=== PATIENT | male | born 1950 | race African-American/Black ===

== ENCOUNTER 2018-03-03 18:53 | Inpatient (IN) | payer MEDICARE, MEDICAID ==
[~2018-03-03] VITALS: Ht 188 cm; Wt 90.7 kg
[~2018-03-03 18:53] MED LIST: AMLODIPINE BESYL5 MG ORAL; LANTUS SOL100 UNIT/1; ZANTAC150 MG ORAL
[2018-03-03] MEDS ORDERED: Sodium Chloride 500ML 500 ML IV ONE (19:44)
[2018-03-03] MEDS ORDERED: Morphine Sulfate 4mg/ml Inj IVP ONE (19:45)
--- NOTE | 2018-03-03 19:49 | Emergency Room Report ---
History of Present Illness General Chief Complaint: Abdominal Pain Source: Patient Present Illness HPI Patient had a laparoscopic cholecystectomy in [place] 2 weeks ago presents today with increased abdominal pain for the past several days Mid abdominal Pain is 10 out of 10 Patient reports vomiting denies any diarrhea Denies any chest pain or shortness of breath Denies any flank pain Allergies: Coded Allergies: ASPIRIN (Verified Allergy, Unknown, 09/13/16) PENICILLINS (Verified Allergy, Unknown, 09/13/16) Patient History Past Medical History: see triage record Pertinent Family History: none Reviewed Nursing Documentation: PMH: Agreed; PSxH: Agreed Nursing Documentation-PMH Past Medical History: No History, Except For Hx Hypertension: Yes Hx Asthma: Yes Hx Diabetes: Yes Hx Cancer: No Hx Gastrointestinal Problems: No Hx Neurological Problems: Yes Hx Peripheral Neuropathy: Yes Review of Systems All Other Systems: negative except mentioned in HPI Physical Exam Vital Signs Date Time Temp Pulse Resp B/P (MAP) Pulse Ox O2 Delivery O2 Flow Rate FiO2 03/03/18 19:11 97.0 90 14 141/91 99 Room Air 97.0 Sp02 EP Interpretation: reviewed, normal General Appearance: moderate distress - In acute pain Head: normocephalic, atraumatic Eyes: bilateral eye PERRL, bilateral eye EOMI ENT: normal pharynx, no angioedema Neck: full range of motion, supple Respiratory: lungs clear Cardiovascular #1: regular rate, rhythm Gastrointestinal: other - Mid abdominal palpable mass possibly, strangulate hernia Musculoskeletal: normal inspection Neurologic: alert, oriented x3 Skin: normal color, no rash Lymphatic: no adenopathy Medical Decision Making Diagnostic Impression: Primary Impression: Abdominal pain ER Course With the history exam and presentation, multiple differentials considered, including but not limited to appendicitis, gastritis, cholecystitis, diverticulitis Given the patient's recent surgery bowel obstruction and other hernia strangulation/incarceration considered Patient's CT result is negative Repeat abdominal exam is soft It appears the hernia likely reduced spontaneously Given the patient's initial presentation he is still placed into admission for observation overnight Unfortunately he did refuse Central line placement for IV access after peripheral IV access was not able to be obtained Patient is admitted to a medical surgical floor, is not in acute distress at this time, and will be reevaluated for more definitive line placement Labs Test 03/03/18 20:40 White Blood Count 7.3 K/UL (4.8-10.8) Red Blood Count 3.58 M/UL (4.70-6.10) Hemoglobin 10.4 G/DL (14.2-18.0) Hematocrit 32.5 % (42.0-52.0) Mean Corpuscular Volume 91 FL (80-99) Mean Corpuscular Hemoglobin 29.0 PG (27.0-31.0) Mean Corpuscular Hemoglobin Concent 32.0 G/DL (32.0-36.0) Red Cell Distribution Width 14.1 % (11.6-14.8) Platelet Count 205 K/UL (150-450) Mean Platelet Volume 5.0 FL (6.5-10.1) Neutrophils (%) (Auto) 75.5 % (45.0-75.0) Lymphocytes (%) (Auto) 15.4 % (20.0-45.0) Monocytes (%) (Auto) 5.3 % (1.0-10.0) Eosinophils (%) (Auto) 2.6 % (0.0-3.0) Basophils (%) (Auto) 1.2 % (0.0-2.0) Prothrombin Time 10.0 SEC (9.30-11.50) Prothromb Time International Ratio 1.0 (0.9-1.1) Activated Partial Thromboplast Time 27 SEC (23-33) Sodium Level 142 MMOL/L (136-145) Potassium Level 3.9 MMOL/L (3.5-5.1) Chloride Level 107 MMOL/L (98-107) Carbon Dioxide Level 25 MMOL/L (21-32) Anion Gap 11 mmol/L (5-15) Blood Urea Nitrogen 21 mg/dL (7-18) Creatinine 2.5 MG/DL (0.55-1.30) Estimat Glomerular Filtration Rate 31.5 mL/min (>60) Glucose Level 174 MG/DL (74-106) Calcium Level 9.1 MG/DL (8.5-10.1) Total Bilirubin 0.2 MG/DL (0.2-1.0) Aspartate Amino Transf (AST/SGOT) 17 U/L (15-37) Alanine Aminotransferase (ALT/SGPT) 27 U/L (12-78) Alkaline Phosphatase 119 U/L (46-116) Total Creatine Kinase 288 U/L (26-308) Creatine Kinase MB 1.3 NG/ML (0.0-3.6) Creatine Kinase MB Relative Index 0.4 Troponin I 0.000 ng/mL (0.000-0.056) Pro-B-Type Natriuretic Peptide 172 pg/mL (0-125) Total Protein 7.7 G/DL (6.4-8.2) Albumin 3.3 G/DL (3.4-5.0) Globulin 4.4 g/dL Albumin/Globulin Ratio 0.8 (1.0-2.7) Lipase 157 U/L (73-393) Rhythm Strip Diag. Results EP Interpretation: yes Rate: 67 Rhythm: NSR, no PVC's, no ectopy CT/MRI/US Diagnostic Results CT/MRI/US Diagnostic Results : Impression CT abdomen pelvis no acute disease Last Vital Signs Date Time Temp Pulse Resp B/P (MAP) Pulse Ox O2 Delivery O2 Flow Rate FiO2 03/03/18 19:11 97.0 90 14 141/91 99 Room Air 97.0 Status: improved Disposition: ADMITTED INPATIENT Condition: Serious Chandrakant Sumner DO March 03, 2018 19:49
[2018-03-03] MEDS ORDERED: Morphine Sulfate 4mg/ml Inj IM ONE (20:00)
[2018-03-03 20:55] VITALS: BP 168/75
[2018-03-03 21:12] LABS: BASOPHILS % (AUTO) 1.2 % (0.0-2.0); EOSINOPHILS % (AUTO) 2.6 % (0.0-3.0); HEMATOCRIT 32.5 % (42.0-52.0); HEMOGLOBIN 10.4 G/DL (14.2-18.0); LYMPHOCYTES % (AUTO) 15.4 % (20.0-45.0); MEAN CORPUSCULAR VOLUME 91 FL (80-99); MONOCYTES % (AUTO) 5.3 % (1.0-10.0); NEUTROPHILS % (AUTO) 75.5 % (45.0-75.0); PLATELET COUNT 205 K/UL (150-450); RED BLOOD COUNT 3.58 M/UL (4.70-6.10); RED CELL DISTRIBUTION WIDTH 14.1 % (11.6-14.8); WHITE BLOOD COUNT 7.3 K/UL (4.8-10.8)
[2018-03-03] MEDS ORDERED: NORCO 10-325 T1 EACH ORAL (21:17)
[2018-03-03 21:18] LABS: ANION GAP 11 mmol/L (5-15); BLOOD UREA NITROGEN 21 mg/dL (7-18); CALCIUM 9.1 MG/DL (8.5-10.1); CARBON DIOXIDE 25 MMOL/L (21-32); CHLORIDE 107 MMOL/L (98-107); CREATININE 2.5 MG/DL (0.55-1.30); POTASSIUM 3.9 MMOL/L (3.5-5.1); SODIUM 142 MMOL/L (136-145)
[2018-03-03 21:33] LABS: ALANINE AMINOTRANSFERASE 27 U/L (12-78); ALBUMIN 3.3 G/DL (3.4-5.0); ALBUMIN/GLOBULIN RATIO 0.8 (1.0-2.7); ALKALINE PHOSPHATASE 119 U/L (46-116); ASPARTATE AMINO TRANSFERASE 17 U/L (15-37); BILIRUBIN,TOTAL 0.2 MG/DL (0.2-1.0); CKMB 1.3 NG/ML (0.0-3.6); CREATINE KINASE 288 U/L (26-308)
[2018-03-03 22:11] VITALS: BP 150/90
--- NOTE | 2018-03-03 22:15 | Consultation ---
DATE OF CONSULTATION: 03/03/2018 CONSULTING PHYSICIAN: Zhang Polk M.D. REQUESTING PHYSICIAN: in the emergency room. REASON FOR CONSULTATION: Abdominal pain. HISTORY OF PRESENT ILLNESS: This is a 68-year-old male, who presented to the emergency room complaining of abdominal pain. Apparently, he has had it for two weeks. He stated that two weeks ago, he has undergone a laparoscopy cholecystectomy at [place] and after that, he has been having pain in the lower abdomen. He claimed that the pain is off and on, has been associated with nausea and vomiting. It is not very clear, but he claims that he had watery diarrhea. He stated that he has been hospitalized in [facility] for two to three days for the same pain and diarrhea. He denies fever, cough, dysuria, or frequency. PAST MEDICAL HISTORY: He claims to be allergic to penicillin and aspirin. He denies cardiac and renal diseases. He has a history of asthma, diabetes, and hypertension. PAST SURGICAL HISTORY: Include laparoscopic cholecystectomy, left carotid endarterectomy, and left knee arthroscopy. MEDICATIONS: Currently, he is on multiple medications. Please see the medicine reconciliation form. SOCIAL HISTORY: The patient is a 67-year-old male, who is a . Father of five children. He is unemployed and denies drinking, but he claims that he smokes a cigar when he plays . REVIEW OF SYSTEMS: Noncontributory. PHYSICAL EXAMINATION: GENERAL: The patient appeared to be a well-developed, well-nourished 68-year-old male, in no acute distress. HEENT: Head is normocephalic and atraumatic. Eyes, pupils are equal, round, and reactive to light. Mouth is clear, but poor denture. NECK: He has a scar from the incision on the left side. There is no palpable thyromegaly or adenopathy. CHEST: Clear to auscultation and percussion. HEART: There is no gallop or murmur. S1 and S2 are within normal limits. ABDOMEN: Soft and flat. He has a scar of the laparoscopic cholecystectomy, which included one small incision above the umbilicus. Scar of the incision in the epigastrium and two small ones on the right side of the abdomen. The abdomen is soft and flat with apparently tenderness at the lower abdomen. There is no palpable organomegaly. Bowel sounds are audible. EXTREMITIES: Within normal limits. LABORATORY AND DIAGNOSTIC DATA: CBC and chemistry is normal. CAT scan of the abdomen is pending. ASSESSMENT: Lower abdominal pain, probably colitis. RECOMMENDATIONS: At this time, the patient requires pain control and GI consultation. There is no surgery required. Zhang Polk M.D. DR: GABBIE JOB#: [id number] CC:
[2018-03-03] MEDS ORDERED: GABAPENTIN600 MG ORAL (23:14)
[2018-03-03] MEDS ORDERED: DOCUSATE SODIU100 M2 ORAL (23:14)
[2018-03-03] MEDS ORDERED: RESTORIL30 MG ORAL (23:14)
[2018-03-03] MEDS ORDERED: BENAZEPRIL HCL10 MG ORAL (23:14)
[2018-03-03] MEDS ORDERED: Morphine Sulfate 4mg/ml Inj IVP PRN (23:15)
[2018-03-04] VITALS: BP 152/82
[2018-03-04] MEDS: HYDROcodone/Acetamin 10/325 tab ORAL PRN ×2 (00:56→08:24)
[2018-03-04] MEDS: D5NS 1,000 ML IV SCH ×3 (01:30→20:16)
[2018-03-04] MEDS ORDERED: Piperacillin/Tazobactam 3.375 GM in D5W 110 ML IVPB SCH (06:00)
[2018-03-04 08:02] VITALS: BP 143/66
[2018-03-04] MEDS: Docusate 100mg cap ORAL SCH ×2 (08:23→17:06)
[2018-03-04] MEDS: Benazepril 10mg tab ORAL SCH (08:25)
[2018-03-04] MEDS: Breo Ellipta 100/25mcg - 14 dose INH SCH (09:51)
[2018-03-04] MEDS ORDERED: Cefepime 1gm in D5W 55ml IVPB SCH (11:00)
[2018-03-04 11:45] VITALS: BP 138/68
[2018-03-04] MEDS ORDERED: Lidocaine 1% Plain 30 ml INJ PRN (12:42)
[2018-03-04] MEDS ORDERED: Heparin 2000 units/Ns 1000ml INJ PRN (12:42)
[2018-03-04] MEDS: metroNIDAZOLE 500mg Premix IVPB SCH ×2 (13:18→20:17)
--- NOTE | 2018-03-04 14:02 | General Surgery Progress Note ---
General Surgery-Progress Note Objective Last 24 Hour Vital Signs Date Time Temp Pulse Resp B/P (MAP) Pulse Ox O2 Delivery O2 Flow Rate FiO2 03/04/18 11:45 98.0 86 20 138/68 97 98.0 03/04/18 09:53 85 18 100 Room Air 21 03/04/18 09:51 85 18 100 Room Air 21 03/04/18 09:23 98.2 03/04/18 08:25 143/66 03/04/18 08:25 84 143/66 03/04/18 08:24 98.2 03/04/18 08:02 98.2 84 20 143/66 97 98.2 03/04/18 00:00 98.1 92 22 152/82 98 Room Air 98.1 03/03/18 22:20 98.0 102 13 150/90 100 Room Air 98.0 03/03/18 22:11 102 13 150/90 100 Room Air 03/03/18 20:55 98.0 89 17 168/75 100 Room Air 98.0 03/03/18 20:29 98.0 03/03/18 19:59 97.0 03/03/18 19:11 97.0 90 14 141/91 99 Room Air 97.0 I&O Intake and Output 03/03/18 03/04/18 19:00 07:00 Output Total 0 ml Balance 0 ml Output Urine Total 0 ml # Voids 2 Respiratory: clear Abdomen: soft, flat Extremities: no edema, no tenderness Laboratory Tests Test 03/03/18 20:40 White Blood Count 7.3 K/UL (4.8-10.8) Red Blood Count 3.58 M/UL (4.70-6.10) L Hemoglobin 10.4 G/DL (14.2-18.0) L Hematocrit 32.5 % (42.0-52.0) L Mean Corpuscular Volume 91 FL (80-99) Mean Corpuscular Hemoglobin 29.0 PG (27.0-31.0) Mean Corpuscular Hemoglobin Concent 32.0 G/DL (32.0-36.0) Red Cell Distribution Width 14.1 % (11.6-14.8) Platelet Count 205 K/UL (150-450) Mean Platelet Volume 5.0 FL (6.5-10.1) L Neutrophils (%) (Auto) 75.5 % (45.0-75.0) H Lymphocytes (%) (Auto) 15.4 % (20.0-45.0) L Monocytes (%) (Auto) 5.3 % (1.0-10.0) Eosinophils (%) (Auto) 2.6 % (0.0-3.0) Basophils (%) (Auto) 1.2 % (0.0-2.0) Prothrombin Time 10.0 SEC (9.30-11.50) Prothromb Time International Ratio 1.0 (0.9-1.1) Activated Partial Thromboplast Time 27 SEC (23-33) Sodium Level 142 MMOL/L (136-145) Potassium Level 3.9 MMOL/L (3.5-5.1) Chloride Level 107 MMOL/L (98-107) Carbon Dioxide Level 25 MMOL/L (21-32) Anion Gap 11 mmol/L (5-15) Blood Urea Nitrogen 21 mg/dL (7-18) H Creatinine 2.5 MG/DL (0.55-1.30) H Estimat Glomerular Filtration Rate 31.5 mL/min (>60) Glucose Level 174 MG/DL (74-106) H Calcium Level 9.1 MG/DL (8.5-10.1) Total Bilirubin 0.2 MG/DL (0.2-1.0) Aspartate Amino Transf (AST/SGOT) 17 U/L (15-37) Alanine Aminotransferase (ALT/SGPT) 27 U/L (12-78) Alkaline Phosphatase 119 U/L (46-116) H Total Creatine Kinase 288 U/L (26-308) Creatine Kinase MB 1.3 NG/ML (0.0-3.6) Creatine Kinase MB Relative Index 0.4 Troponin I 0.000 ng/mL (0.000-0.056) Pro-B-Type Natriuretic Peptide 172 pg/mL (0-125) H Total Protein 7.7 G/DL (6.4-8.2) Albumin 3.3 G/DL (3.4-5.0) L Globulin 4.4 g/dL Albumin/Globulin Ratio 0.8 (1.0-2.7) L Lipase 157 U/L (73-393) Assessment Additional Comments abdominal pain Plan Additional Comments requires G-I consultation CHRIS RAMOS March 04, 2018 14:02
[2018-03-04] MEDS ORDERED: Miralax 17gm pkt ORAL PRN (14:43)
[2018-03-04 16:01] VITALS: BP 135/65
--- NOTE | 2018-03-04 18:30 | History and Physical Report ---
DATE OF ADMISSION: 03/04/2018 CHIEF COMPLAINT: Abdominal pain. HISTORY OF PRESENT ILLNESS: The patient is a 67-year-old male. He has a history of hypertensive heart disease, diabetes, and asthma, who presented with complaints of abdominal pain. According to the patient, he was well. He said several weeks ago, he had a laparoscopic cholecystectomy done in [place]. Ever since, he has had intermittent episodes of nausea and vomiting. He states at times he is able to tolerate p.o. and at other times, he vomits. His last bowel movement was several days ago. Because of his persistent nausea and vomiting, he presented to the emergency room. On evaluation there, the patient's white count was normal. Laboratory was significant for creatinine of 2.5. CT scan of the abdomen was done, but results are still currently pending. In light of the patient's persistent nausea, vomiting, and renal failure, he is now admitted for further evaluation and care. PAST MEDICAL HISTORY: As above. PAST SURGICAL HISTORY: Left carotid endarterectomy, left knee surgery, and a recent laparoscopic cholecystectomy. CURRENT MEDICATIONS: Reconciled and reviewed. ALLERGIES: Include aspirin and penicillin. FAMILY HISTORY: Noncontributory. SOCIAL HISTORY: Negative for tobacco, ethanol, or drugs. REVIEW OF SYSTEMS: GENERAL: No fevers or chills. HEENT: No headaches or visual changes. CARDIOPULMONARY: No chest pain or shortness of breath. GASTROINTESTINAL: Positive for nausea and vomiting. No diarrhea. Positive for constipation. GENITOURINARY: No urgency or frequency. MUSCULOSKELETAL: No joint pain or swelling. NEUROLOGIC: No seizures. PHYSICAL EXAMINATION: VITAL SIGNS: Temperature 98 degrees, blood pressure 150/90, pulse is 102, and respirations 20. GENERAL: The patient is a well-developed male, in no apparent distress. HEART: Regular rate and rhythm. LUNGS: Clear. ABDOMEN: Soft, mildly tender, but nondistended. There is no rebound or guarding. There are several old scars from his laparoscopic cholecystectomy. EXTREMITIES: Without clubbing, cyanosis, or edema. LABORATORY DATA: White count 7, hemoglobin 10, hematocrit 32, and platelets are 205,000. Coags are normal. Creatinine was 2.5. Potassium was 3.9. Troponin was negative. CK was 288. ASSESSMENT: This is a pleasant male, status post laparoscopic cholecystectomy, who presents with complaints of intermittent episodes of nausea and vomiting. 1. Nausea and vomiting. rule out obstruction. 2. Dehydration. 3. Acute renal failure. PLAN: The patient refused a central line. Multiple attempts to place a peripheral line have been unsuccessful. We will try to place a line in the foot. Order a PICC line. We will hydrate. We will follow up CT scan. GI consultation will also be obtained. Surgery input is greatly appreciated. Empiric antibiotics. Chris Jones M.D. DR: TAI JOB#: [id number] CC:
[2018-03-04 19:21] VITALS: BP 138/93
[2018-03-05 00:17] VITALS: BP 123/67
[2018-03-05 04:04] VITALS: BP 138/72
[2018-03-05] MEDS: metroNIDAZOLE 500mg Premix IVPB SCH (05:31)
[2018-03-05] MEDS: D5NS 1,000 ML IV SCH (05:39)
[2018-03-05 08:00] VITALS: BP 165/92
--- NOTE | 2018-03-05 08:06 | General Progress Note ---
Assessment/Plan Problem List: (1) Acute renal failure (ARF) ICD Codes: N17.9 - Acute kidney failure, unspecified SNOMED: 68482706 (2) Abdominal pain ICD Codes: R10.9 - Unspecified abdominal pain SNOMED: 54764089 Status: stable Assessment/Plan follow up ct abx bowel regime Subjective ROS Limited/Unobtainable: No Constitutional: Reports: malaise, weakness HEENT: Reports: no symptoms Cardiovascular: Reports: no symptoms Respiratory: Reports: no symptoms Gastrointestinal/Abdominal: Reports: abdominal pain Genitourinary: Reports: no symptoms Neurologic/Psychiatric: Reports: no symptoms Endocrine: Reports: no symptoms Hematologic/Lymphatic: Reports: no symptoms Allergies: Coded Allergies: ASPIRIN (Verified Allergy, Unknown, 09/13/16) PENICILLINS (Verified Allergy, Unknown, 09/13/16) All Systems: reviewed and negative except above Subjective refusing to eat because of abd pain. Per surgery ct negative. no results in computer yet. no fever or chills. no iv access.pt refused central line Objective Last 24 Hour Vital Signs Date Time Temp Pulse Resp B/P (MAP) Pulse Ox O2 Delivery O2 Flow Rate FiO2 03/05/18 04:04 98.2 80 20 138/72 99 Room Air 98.2 03/05/18 00:17 98.6 71 20 123/67 98 Room Air 98.6 03/04/18 19:21 98.1 76 20 138/93 96 Room Air 98.1 03/04/18 16:01 98.2 80 20 135/65 98 98.2 03/04/18 11:45 98.0 86 20 138/68 97 98.0 03/04/18 09:53 85 18 100 Room Air 21 03/04/18 09:51 85 18 100 Room Air 21 03/04/18 09:23 98.2 03/04/18 08:25 143/66 03/04/18 08:25 84 143/66 03/04/18 08:24 98.2 Intake and Output 03/04/18 03/05/18 19:00 07:00 Intake Total 120 ml 300 ml Output Total 600 ml Balance -480 ml 300 ml Intake Oral 120 ml 300 ml Output Urine Total 600 ml # Voids 2 3 # Bowel Movements 2 Height (Feet): 6 Height (Inches): 2.00 Weight (Pounds): 200 General Appearance: WD/WN, no apparent distress Cardiovascular: regular rhythm Respiratory/Chest: lungs clear Abdomen: normal bowel sounds, non tender, soft, no organomegaly, no mass Edema: no edema noted Arm (L), no edema noted Arm (R), no edema noted Leg (L), no edema noted Leg (R), no edema noted Pedal (L), no edema noted Pedal (R), no edema noted Generalized JEANNE WAY March 05, 2018 08:05
[2018-03-05] MEDS ORDERED: Magnesium Citrate Liq Btl ORAL SCH (08:45)
[2018-03-05] MEDS: Docusate 100mg cap ORAL SCH (08:48)
[2018-03-05] MEDS: Benazepril 10mg tab ORAL SCH (08:48)
[2018-03-05] MEDS: HYDROcodone/Acetamin 10/325 tab ORAL PRN (08:52)
[2018-03-05 09:52] LABS: ALANINE AMINOTRANSFERASE 66 U/L (12-78); ALBUMIN 3.3 G/DL (3.4-5.0); ALBUMIN/GLOBULIN RATIO 0.7 (1.0-2.7); ALKALINE PHOSPHATASE 149 U/L (46-116); ANION GAP 8 mmol/L (5-15); ASPARTATE AMINO TRANSFERASE 59 U/L (15-37); BILIRUBIN,TOTAL 0.2 MG/DL (0.2-1.0); BLOOD UREA NITROGEN 18 mg/dL (7-18); CALCIUM 9.5 MG/DL (8.5-10.1); CARBON DIOXIDE 28 MMOL/L (21-32); CHLORIDE 106 MMOL/L (98-107); CREATININE 2.2 MG/DL (0.55-1.30); POTASSIUM 4.5 MMOL/L (3.5-5.1); SODIUM 142 MMOL/L (136-145)
[2018-03-05] MEDS: Breo Ellipta 100/25mcg - 14 dose INH SCH (09:59)
--- NOTE | 2018-03-05 11:51 | Cardiology Report ---
APPROVED REPORT EKG Measurement Heart [id number] Normal sinus rhythm Normal ECG
[2018-03-05 11:55] VITALS: BP 149/82
--- NOTE | 2018-03-05 15:48 | General Surgery Progress Note ---
General Surgery-Progress Note Subjective Symptoms: BM Additional Comments continues complaining of nonspecific abdominal pain Objective Last 24 Hour Vital Signs Date Time Temp Pulse Resp B/P (MAP) Pulse Ox O2 Delivery O2 Flow Rate FiO2 03/05/18 11:55 96.8 73 18 149/82 99 Room Air 96.8 03/05/18 10:01 104 18 100 Room Air 21 03/05/18 09:59 104 24 100 Room Air 21 03/05/18 09:51 98.1 03/05/18 08:52 98.1 03/05/18 08:49 104 165/92 03/05/18 08:48 165/92 03/05/18 08:00 98.1 104 20 165/92 98 Room Air 98.1 03/05/18 04:04 98.2 80 20 138/72 99 Room Air 98.2 03/05/18 00:17 98.6 71 20 123/67 98 Room Air 98.6 03/04/18 19:21 98.1 76 20 138/93 96 Room Air 98.1 03/04/18 16:01 98.2 80 20 135/65 98 98.2 I&O Intake and Output 03/04/18 03/05/18 19:00 07:00 Intake Total 120 ml 300 ml Output Total 600 ml Balance -480 ml 300 ml Intake Oral 120 ml 300 ml Output Urine Total 600 ml # Voids 2 3 # Bowel Movements 2 Respiratory: clear Abdomen: soft, flat, tenderness, present bowel sounds Extremities: no tenderness Laboratory Tests Test 03/05/18 09:08 Sodium Level 142 MMOL/L (136-145) Potassium Level 4.5 MMOL/L (3.5-5.1) Chloride Level 106 MMOL/L (98-107) Carbon Dioxide Level 28 MMOL/L (21-32) Anion Gap 8 mmol/L (5-15) Blood Urea Nitrogen 18 mg/dL (7-18) Creatinine 2.2 MG/DL (0.55-1.30) H Estimat Glomerular Filtration Rate 36.5 mL/min (>60) Glucose Level 181 MG/DL (74-106) H Calcium Level 9.5 MG/DL (8.5-10.1) Total Bilirubin 0.2 MG/DL (0.2-1.0) Aspartate Amino Transf (AST/SGOT) 59 U/L (15-37) H Alanine Aminotransferase (ALT/SGPT) 66 U/L (12-78) Alkaline Phosphatase 149 U/L (46-116) H Total Protein 8.0 G/DL (6.4-8.2) Albumin 3.3 G/DL (3.4-5.0) L Globulin 4.7 g/dL Albumin/Globulin Ratio 0.7 (1.0-2.7) L Assessment Additional Comments abdominal pain etiology unknown Plan Additional Comments requires G-I consult CHRIS RAMOS March 05, 2018 15:48
[2018-03-06] MEDS ORDERED: GABAPENTIN600 MG ORAL (10:15)
--- NOTE | 2018-03-06 10:37 | Diagnostic Imaging Report ---
Please disregard this report
[2018-03-06] MEDS ORDERED: DICYCLOMIN10 MG/5 M1 PO (15:02)
[2018-03-06] MEDS ORDERED: Dyna-Hex 2% Top Sol 2oz TOPIC SCH (20:00)
--- NOTE | 2018-03-09 11:57 | Diagnostic Imaging Report ---
EXAM: CT Abdomen and Pelvis With Intravenous Contrast CLINICAL HISTORY: PAIN TECHNIQUE: Axial computed tomography images of the abdomen and pelvis with intravenous contrast. CTDI is 0.15, 15.91, 15.91 mGy and DLP is 1561 mGy- cm. One or more of the following dose reduction techniques were used: automated exposure control, adjustment of the mA and/or kV according to patient size, use of iterative reconstruction technique. COMPARISON: No relevant prior studies available. FINDINGS: Lung bases: Dependent atelectasis with trace pleural effusion. ABDOMEN: Liver: Question liver cirrhosis. Gallbladder and bile ducts: Gallbladder is surgically absent. Pancreas: Unremarkable. Spleen: Unremarkable. Adrenals: Unremarkable. Kidneys and ureters: Cysts within the left kidney. Otherwise, kidneys and ureters are unremarkable. Stomach and bowel: Noninflamed colonic diverticulosis. PELVIS: Appendix: Appendix is unremarkable. Bladder: Unremarkable. Reproductive: Prostate gland is markedly enlarged. ABDOMEN and PELVIS: Intraperitoneal space: Unremarkable. Bones/joints: No acute osseous abnormality. No dislocation. Soft tissues: Unremarkable. Vasculature: Unremarkable. No abdominal aortic aneurysm. Lymph nodes: Unremarkable. IMPRESSION: No acute findings.
--- NOTE | 2018-03-11 08:13 | Discharge Summary ---
Discharge Summary Discharge Summary Discharge Summary DATE OF ADMISSION: 03/03/2018 DATE OF DISCHARGE: 03/05/2018 patient signed AGAINST MEDICAL ADVICE REASON FOR ADMISSION: 67 years old male with past medical history of hypertension, asthma, diabetes, undergone laparoscopic cholecystectomy in [place] 2 weeks ago. He presented to emergency department with increased abdominal pain for the past several days. He reported midabdominal pain , 10 out of 10 on a scale 1-10, nonradiating. He reported vomiting but no diarrhea. He denied hematemesis and melena. He denied chest pain, ,shortness of breath. He denied flank pain, no fever no chills. CT of the abdomen and pelvis revealed no acute findings. No fever. No leukocytosis. Hemoglobin 10.4 hematocrit 32.5 BUN 25 and creatinine 2.5. Stable electrolytes, liver enzymes and lipase. Troponin negative. EKG revealed normal sinus rhythm, nol acute ischemic changes. On physical examination per ED provider, patient appeared to have hernia , which reduced spontaneously. Patient admitted with diagnosis nausea and vomiting,rule out obstruction,; abdominal pain, dehydration, acute renal failure. CONSULTANTS: surgery Dr. Burnett [facility] COURSE: Patient admitted to medical surgical floor. Patient declined central line. Multiply attempts to place a peripheral line were unsuccessful. PICC line was ordered. Patient was started on the IV hydration. GI and surgery consults were requested. Patient started on empiric antibiotic. Renal parameters and electrolytes were closely monitored, nephrotoxins were avoided. Pain management was addressed. Blood pressure was managed with calcium channel blockade and DARIO inhibitor and remained stable. GI prophylaxis provided. Bowel regimen instituted. Patient slowly started on liquid diet to advance as tolerated. Surgeon seen and evaluated the patient and recommended pain control and GI consultation. Abdominal exam was unremarkable, with normoactive bowel sounds , no signs of acute abdomen. After physical examination and review of CT scan, surgeon concluded that there was no need for surgical intervention at this time. On March 05, the patient became verbally abusive , using profanity words and screaming. Patient declined bowel regimen as prescribed. Patient expressed desire to leave. He declined to sign AMA form. FINAL DIAGNOSES: Abdominal pain of unknown etiology Nausea and vomiting, resolved Dehydration Acute renal failure I have been assigned to dictate discharge summary for this account. I was not involved in the patient's management. Jailene Wall NP March 11, 2018 08:13
--- NOTE | 2018-03-12 11:11 | Diagnostic Imaging Report ---
EXAM: XR Chest, 1 View CLINICAL HISTORY: CP TECHNIQUE: Frontal view of the chest, "port erect" labeled in left upper hand of the image. COMPARISON: No relevant prior studies available. FINDINGS: Lungs: Unremarkable. No consolidation. Pleural space: Unremarkable. No pneumothorax. Heart: Unremarkable. No cardiomegaly. Mediastinum: Unremarkable. Bones/joints: Unremarkable. IMPRESSION: Normal chest x-ray. Noted is images dated 03/03/18
== END 2018-03-05 16:50 | disposition left against medical advice (07) | DRG 684 ==
LOC: EMR 19:10 → 4W 21:29 → EDBEDREQ 21:40
DX: N17.9 Acute kidney failure, unspecified (principal); R10.30 Lower abdominal pain, unspecified; I11.9 Hypertensive heart disease without heart failure; J45.909 Unspecified asthma, uncomplicated; E11.9 Type 2 diabetes mellitus without complications; E86.0 Dehydration; F17.210 Nicotine dependence, cigarettes, uncomplicated; Z88.0 Allergy status to penicillin; Z98.890 Other specified postprocedural states; Z53.21 Procedure and treatment not carried out due to patient leaving prior to being seen by health care provider
CPT/HCPCS: 36415; 71045; 74176; 80053; 82550; 82553; 82962; 83690; 83880; 84484; 85025; 85610; 85730; 93005; 94640; 99285

== ENCOUNTER 2018-03-06 10:29 | Emergency (ER) | payer MEDICARE, MEDICAID ==
[~2018-03-06] VITALS: Ht 188 cm; Wt 83.9 kg
[2018-03-06 10:29] VITALS: BP 166/75
[~2018-03-06 10:29] MED LIST changes: +BENAZEPRIL HCL10 MG ORAL; +DOCUSATE SODIU100 M2 ORAL; +GABAPENTIN600 MG ORAL; +NORCO 10-325 T1 EACH ORAL; +RESTORIL30 MG ORAL
[2018-03-06] MEDS ORDERED: Isovue-300 100ml vial INJ PRN (10:30)
[2018-03-06] MEDS ORDERED: Morphine Sulfate 4mg/ml Inj IVP ONE (10:30)
--- NOTE | 2018-03-06 10:33 | Emergency Room Report ---
History of Present Illness General Chief Complaint: Abdominal Pain Source: Patient, EMS Present Illness HPI 67-year-old male with a history of recent laparoscopic abdominal surgery In [place] about 2 weeks ago for what he thinks was pancreatic cancer Presents with abdominal pain this been going on since prior to the surgery He reports it's sharp, epigastric area, worse with eating, and also associated with nausea and vomiting intermittently He was in her primary care doctor's office when they told him to come to the ER for abdominal pain evaluation He is not on an percent certain what was done during the recent surgery Allergies: Coded Allergies: ASPIRIN (Verified Allergy, Unknown, 09/13/16) PENICILLINS (Verified Allergy, Unknown, 09/13/16) Patient History Past Medical History: see triage record Reviewed Nursing Documentation: PMH: Agreed; PSxH: Agreed Nursing Documentation-PMH Past Medical History: No History, Except For Hx Cardiac Problems: Yes Hx Hypertension: No - RA Hx Asthma: Yes Hx Diabetes: Yes Hx Cancer: No Hx Gastrointestinal Problems: Yes - [place] Hx Neurological Problems: Yes Hx Peripheral Neuropathy: Yes Review of Systems All Other Systems: negative except mentioned in HPI Physical Exam Vital Signs Date Time Temp Pulse Resp B/P (MAP) Pulse Ox O2 Delivery O2 Flow Rate FiO2 03/06/18 10:10 97.9 102 20 134/80 99 Room Air 97.9 Sp02 EP Interpretation: reviewed, normal General Appearance: no apparent distress, alert, non-toxic Head: normocephalic Eyes: bilateral eye normal inspection, bilateral eye PERRL, bilateral eye EOMI ENT: normal ENT inspection, hearing grossly normal, normal pharynx, no angioedema, normal voice, moist mucus membranes Neck: normal inspection, full range of motion, supple, supple/symm/no masses Respiratory: chest non-tender, lungs clear, normal breath sounds, chest symmetrical, palpation of chest normal Cardiovascular #1: normal peripheral pulses, regular rate, rhythm Cardiovascular #2: 2+ radial (R), 2+ radial (L) Gastrointestinal: non tender, soft, no mass, no guarding, no rebound, other - Multiple scars over laparascopic incision sites c/d/i and healing Rectal: deferred Genitourinary: normal inspection, no CVA tenderness Musculoskeletal: back normal, gait/station normal, normal range of motion, non- tender, no calf tenderness Neurologic: alert, responsive, pile header III-XII nml as tested, motor strength/tone normal, sensory intact, speech normal Psychiatric: judgement/insight normal, memory normal, mood/affect normal, no suicidal/homicidal ideation Skin: normal color, no rash, warm/dry, normal turgor Lymphatic: no adenopathy Medical Decision Making ER Course Patient with abdominal pain, minimal tenderness, well-healing scars Has known cancer, this may not be an acute problem We'll obtain labs and urine and workup including CT scan to further evaluate ct unremarkable, labs and overall workup unremarkable, will dc home Of note, no large mass seen on ct either, recommend outpatient workup for what patient tells us is a cancer diagnosis made in [place] CT/MRI/US Diagnostic Results CT/MRI/US Diagnostic Results : Imaging Test Ordered: ct abd/pelvis Impression no acute disease; surgically absent gallbladder, no major changes from previous ct Last Vital Signs Date Time Temp Pulse Resp B/P (MAP) Pulse Ox O2 Delivery O2 Flow Rate FiO2 03/06/18 10:10 97.9 102 20 134/80 99 Room Air 97.9 Disposition: HOME, SELF-CARE Condition: Stable JESSICA HOLDER M.D March 06, 2018 10:33
[2018-03-06 11:51] LABS: BASOPHILS % (AUTO) 0.5 % (0.0-2.0); HEMATOCRIT 34.4 % (42.0-52.0); HEMOGLOBIN 11.3 G/DL (14.2-18.0); LYMPHOCYTES % (AUTO) 28.3 % (20.0-45.0); MEAN CORPUSCULAR VOLUME 90 FL (80-99); MONOCYTES % (AUTO) 8.2 % (1.0-10.0); NEUTROPHILS % (AUTO) 60.9 % (45.0-75.0); PLATELET COUNT 265 K/UL (150-450); RED BLOOD COUNT 3.81 M/UL (4.70-6.10); RED CELL DISTRIBUTION WIDTH 13.9 % (11.6-14.8); WHITE BLOOD COUNT 5.6 K/UL (4.8-10.8)
[2018-03-06 12:05] LABS: ANION GAP 10 mmol/L (5-15); BLOOD UREA NITROGEN 22 mg/dL (7-18); CALCIUM 9.4 MG/DL (8.5-10.1); CARBON DIOXIDE 26 MMOL/L (21-32); CHLORIDE 107 MMOL/L (98-107); CREATININE 2.5 MG/DL (0.55-1.30); POTASSIUM 4.2 MMOL/L (3.5-5.1); SODIUM 143 MMOL/L (136-145)
[2018-03-06 12:09] LABS: ALANINE AMINOTRANSFERASE 80 U/L (12-78); ALBUMIN 3.4 G/DL (3.4-5.0); ALBUMIN/GLOBULIN RATIO 0.7 (1.0-2.7); ALKALINE PHOSPHATASE 136 U/L (46-116); ASPARTATE AMINO TRANSFERASE 62 U/L (15-37); BILIRUBIN,TOTAL 0.2 MG/DL (0.2-1.0)
[2018-03-06 13:24] LABS: APPEARANCE,URINE CLEAR; BILIRUBIN, URINE NEGATIVE (NEGATIVE); COLOR,URINE PALE YELLOW; GLUCOSE, URINE (UA) NEGATIVE (NEGATIVE); KETONES,URINE NEGATIVE (NEGATIVE); LEUKOCYTE ESTERASE ,URINE 1+ (NEGATIVE); NITRITE,URINE NEGATIVE (NEGATIVE); PH,URINE 6 (4.5-8.0); PROTEIN,URINE 4+ (NEGATIVE); UROBILINOGEN,URINE NORMAL MG/DL (0.0-1.0)
[2018-03-06 13:27] VITALS: BP 148/81
[2018-03-06] MEDS ORDERED: DICYCLOMIN10 MG/5 M1 PO (15:02)
[2018-03-06 15:30] VITALS: BP 135/70
--- NOTE | 2018-03-06 16:57 | Diagnostic Imaging Report ---
Indication: Abdominal pain Technique: Continuous helical transaxial imaging of the abdomen and pelvis was obtained from the lung bases to the pubic symphysis. No intravenous contrast was administered. Coronal 2-D reformats were also obtained. Automatic Exposure Control was utilized. Total Dose length Product (DLP): 784.[address] Dose Index Volume (CTDIvol): 15.91 mGy Comparison: CT 03/03/2018 Findings: Breathing motion limiting evaluation. Cholecystectomy noted. Arterial calcifications are present. There is mild left basal atelectasis and trace left pleural effusion. No nephrolithiasis appreciated. Hypodensity in the left kidney may be a cyst. The appendix is partially seen and appears normal. No evidence of bowel obstruction, free fluid or free air. Prostate hypertrophy 5 x 6.5 x 6.5 cm. Small left inguinal hernia demonstrated. Degenerative disc disease moderate in degree at L4-5 and L5-S1 with hypertrophied facets narrowed neural foramen noted. There is likely central stenosis at L4-5. There is a small rounded calcified structure measuring about 8 mm in the right lower quadrant abdomen (image 94 series 3). This is within one of the loops of small bowel and was noted previously 03/03/2018 CT as well in a different location but also within small bowel (image 95 series 3). This is presumably something ingested such as a pill. Correlate clinically. There is no evidence of bowel obstruction or inflammation. IMPRESSION: Limited study due to breathing motion. No acute findings appreciated. Prostate hypertrophy Spinal stenosis present at L4-5 with moderate degenerative changes in the lower lumbar spine. Ingested foreign body, possibly medication noted within distal small bowel. No associated obstruction or inflammation. Correlate clinically. Multiple other incidental findings as above The CT scanner at [facility] is accredited by the [employer] and the scans are performed using dose optimization techniques as appropriate to a performed exam including Automatic Exposure control.
--- NOTE | 2018-03-07 16:47 | Cardiology Report ---
APPROVED REPORT EKG Measurement Heart [id number] Normal sinus rhythm Normal ECG
== END 2018-03-06 15:30 | disposition home or self-care (01) ==
LOC: EDBD 10:29 → EMR 10:46
DX: R10.9 Unspecified abdominal pain (principal); Z88.0 Allergy status to penicillin; Z88.6 Allergy status to analgesic agent; E11.9 Type 2 diabetes mellitus without complications; J45.909 Unspecified asthma, uncomplicated; N40.0 Benign prostatic hyperplasia without lower urinary tract symptoms; M48.061 Spinal stenosis, lumbar region without neurogenic claudication
CPT/HCPCS: 36415; 74176; 80053; 81003; 83690; 84484; 85025; 93005; 96374; 96375; 99284; J2270; J2405